=== PATIENT | female | born 1965 | race Caucasian/White ===

== ENCOUNTER 2019-08-04 06:30 | Day surgery (SDC) | payer OTHER ==
[~2019-08-04 06:30] MED LIST: MULTI VITAMIN1 EACH PO; SYNTHROID137 MCG PO; TOPROL XL50 M1 PO
[2019-08-04] MEDS ORDERED: COLACE100 MG PO (14:03)
[2019-08-04] MEDS ORDERED: PERCOCET 5-3251 EACH PO (14:03)
== END 2019-08-04 20:35 | disposition home or self-care (01) ==
LOC: CIR.AMB 06:30
DX: K64.8 Other hemorrhoids (principal)

== ENCOUNTER 2019-08-31 07:18 | Outpatient (CLI) | payer OTHER ==
[~2019-08-31 07:18] MED LIST changes: +COLACE100 MG PO; +PERCOCET 5-3251 EACH PO
== END 2019-08-31 08:51 | disposition home or self-care (01) ==
LOC: SONOGRAMA 07:18
DX: E04.2 Nontoxic multinodular goiter (principal)